=== PATIENT | female | born 1935 | race Caucasian/White ===

== ENCOUNTER 2017-10-15 11:37 | Emergency (ER) | payer MEDICARE, BC ==
[~2017-10-15] VITALS: Ht 152.4 cm; Wt 65.8 kg
[~2017-10-15 11:37] MED LIST: AMLODIPINE BESY10 MG PO; ASPIR 8181 MG PO; CEPHALEXIN500 MG PO; CITALOPRAM HBR20 MG PO; GNP B-COMPLEX1 EACH PO; LEVOCETIRIZINE D5 MG PO; PRAVACHOL20 MG PO; ROVIN-CF OF TA1 EACH
[2017-10-15 12:35] LABS: BASOPHILS % 0.3 % (0.0-1.0); EOSINOPHILS % 0.1 % (0.0-6.0); HEMATOCRIT 41.2 % (34.2-44.1); HEMOGLOBIN 13.8 g/dL (12.0-16.0); LYMPHOCYTES # (AUTO) 0.5 (1.0-3.2); LYMPHOCYTES % 3.6 % (18.0-39.1); MEAN CORPUSCULAR HEMOGLOBIN 30.2 pg (28-32); MEAN CORPUSCULAR HGB CONC 33.5 g/dL (31-35); MEAN CORPUSCULAR VOLUME 90.2 fL (81-99); MONOCYTES # (AUTO) 0.4 (0.2-0.8); MONOCYTES % 3.4 % (4.4-11.3); NEUTROPHILS # (AUTO) 12.1 (2.1-6.9); NEUTROPHILS % 92.3 % (38.7-80.0); PLATELET COUNT 214 x10e3/uL (140-360); RED BLOOD COUNT 4.57 x10e6/uL (3.6-5.1); RED CELL DISTRIBUTION WIDTH 12.7 % (11.7-14.4)
[2017-10-15] MEDS ORDERED: KETOROLAC TROMETHAMINE 30 MG/ML VIAL IV ONE (13:00)
--- NOTE | 2017-10-15 13:13 | Diagnostic Imaging Report ---
Exam: Head CT without contrast History: New onset headache Comparison studies: None Technique: Axial images were obtained from the skull base to the vertex. Coronal and sagittal images reconstructed from the axial data. Intravenous contrast: None Findings: Scalp: No abnormalities. Bones: No fractures, blastic or lytic lesions. Brain sulci: Appropriate for age. Ventricles: Normal in size and configuration. No hydrocephalus. Extra-axial spaces: No masses, no fluid collection. Parenchyma: A few scattered hypodensities in the supratentorial white matter are nonspecific but most compatible with chronic small vessel ischemic changes. Small chronic lacunar insult in the anterior limb of the right internal capsule. Sellar/suprasellar region: No abnormalities. Craniocervical junction: Patent foramen magnum. No Chiari one malformation. Included paranasal sinuses: Left sphenoid sinus is opacified and contains hyperdense inspissated secretions. Nonspecific inflammatory mucosal thickening in the posterior ethmoids and right sphenoid sinus. Incidental findings: Atherosclerotic calcifications in the carotid siphons. IMPRESSION: 1. No acute intracranial abnormalities. 2. Mild supratentorial chronic microvascular ischemic changes with chronic lacunar infarct in the anterior limb of the right internal capsule. 3. Inflammatory changes in the paranasal sinuses. Signed by: Dr. Hunter Sanchez M.D. on 10/15/2017 1:09 PM
[2017-10-15 13:34] LABS: ERYTHROCYTE SEDIMENTATION RATE 35 mm/hr (0-20)
[2017-10-15 13:48] LABS: ANION GAP 12.2 mmol/L (8-16); CALCIUM 9.8 mg/dL (8.4-10.2); CREATININE, SERUM 1.02 mg/dL (0.57-1.11); POTASSIUM 3.2 mmol/L (3.5-5.1)
--- NOTE | 2017-10-15 13:50 | Diagnostic Imaging Report ---
EXAMINATION: CHEST SINGLE (PORTABLE) INDICATION: \S\cough \S\Y COMPARISON: 11/19/2014 FINDINGS: AP view TUBES and LINES: None. LUNGS: Lungs are well inflated. Mild central vascular congestion and interstitial edema. No definite focal consolidation. PLEURA: No pleural effusion or pneumothorax. HEART AND MEDIASTINUM: Enlarged cardiac silhouette. Aorta is mildly tortuous. BONES AND SOFT TISSUES: No acute osseous lesion. Soft tissues are unremarkable. UPPER ABDOMEN: No free air under the diaphragm. IMPRESSION: Mild central vascular congestion and interstitial edema. No definite focal consolidation. Signed by: Dr. Marek Bower MD on 10/15/2017 1:46 PM
[2017-10-15] MEDS ORDERED: CEFTRIAXONE SOD 1 GM VIAL IV ONE (14:00)
[2017-10-15 14:21] VITALS: BP 110/58
== END 2017-10-15 14:35 | disposition home or self-care (01) ==
LOC: ER 11:37
DX: G44.52 New daily persistent headache (NDPH) (principal); J01.20 Acute ethmoidal sinusitis, unspecified; J01.30 Acute sphenoidal sinusitis, unspecified; I10 Essential (primary) hypertension
CPT/HCPCS: 36415; 70450; 71045; 80048; 85025; 85651; 99284; J0696; J1885

== ENCOUNTER → 2019-02-11 | Outpatient (CLI) | payer MEDICARE, BC ==
--- NOTE | 2019-02-11 10:02 | Diagnostic Imaging Report ---
EXAM: Renal Ultrasound INDICATION: ^CYST OF KIDNEY COMPARISON: Renal ultrasound 05/15/2012 TECHNIQUE: Transverse and longitudinal images of the kidneys and bladder were obtained. FINDINGS: Right Kidney: Status post right nephrectomy Left Kidney: Length: 10.4 cm Appearance: Normal echogenicity. Collecting system: No hydronephrosis Stones: None Cyst/Mass: Inferior pole 1.0 x 1.3 x 0.6 cm cystic structure with internal echoes and questionable associated vascularity. Bladder: No mass, calculi, or wall thickening. Prevoid volume estimate of 139.6 cc. Left ureteral jet seen. Incidental note made of left ovarian cyst measuring 2.9 x 3.3 x 3.4 cm centrally unchanged from prior sonographic evaluation allowing for differences in technique. IMPRESSION: Status post right nephrectomy. Left kidney inferior pole 1.0 x 1.3 x 0.6 cm cystic structure with internal echoes and questionable associated vascularity. Recommend attention to this area on 6 month follow-up ultrasound. Signed by: Leoncio Apodaca MD on 02/11/2019 9:59 AM
== END ==
LOC: US 07:48
PROVIDERS: ATTEND Urology
DX: N28.1 Cyst of kidney, acquired (principal)
CPT/HCPCS: 76770

== ENCOUNTER → 2020-04-30 | Outpatient (CLI) | payer MEDICARE, BC ==
--- NOTE | 2020-04-30 16:59 | Diagnostic Imaging Report ---
EXAM: Renal Ultrasound INDICATION: ^URINARY TRACT INFECTION COMPARISON: Ultrasound dated 02/11/2019 TECHNIQUE: Transverse and longitudinal images of the kidneys and bladder were obtained. FINDINGS: Right Kidney: Status post right nephrectomy. Left Kidney: Length: 9.8 cm Appearance: Normal echogenicity. Collecting system: No hydronephrosis Stones: None Cyst/Mass: Inferior pole 1.2 cm anechoic lesion is noted with possible adjacent calcification. Bladder: Left ureteral jet is noted. There is either a separate adjacent cystic lesion within the left adnexum versus a bladder diverticulum within the pelvis measuring up to 3.7 cm. Patient also has a palpable abnormality in the left groin area concerning for possible hernia. Ultrasound imaging damages a questionable left inguinal hernia, which worsens with Valsalva. IMPRESSION: 1. Questionable bladder diverticulum versus left ovarian/adnexal cysts. 2. Probable left inguinal hernia. The above findings could be further evaluated with a contrast enhanced CT. Signed by: Pierre Schulz MD on 04/30/2020 4:56 PM
== END ==
LOC: US 15:55
PROVIDERS: ATTEND Urology
DX: N39.0 Urinary tract infection, site not specified (principal)
CPT/HCPCS: 76770

== ENCOUNTER 2022-11-03 10:41 | Emergency (ER) | payer MEDICARE, BC ==
[~2022-11-03] VITALS: Ht 152.4 cm; Wt 65.8 kg
[2022-11-03 12:47] LABS: BASOPHILS # (AUTO) 0.1 (0.0-0.1); BASOPHILS % 0.8 % (0.0-1.0); EOSINOPHILS # (AUTO) 0.1 (0.0-0.4); HEMATOCRIT 46.6 % (34.2-44.1); HEMOGLOBIN 15.3 g/dL (12.0-16.0); LYMPHOCYTES # (AUTO) 1.6 (1.0-3.2); MEAN CORPUSCULAR HEMOGLOBIN 29.6 pg (28-32); MEAN CORPUSCULAR HGB CONC 32.8 g/dL (31-35); MEAN CORPUSCULAR VOLUME 90.1 fL (81-99); MONOCYTES # (AUTO) 0.4 (0.2-0.8); MONOCYTES % 7.1 % (4.4-11.3); NEUTROPHILS # (AUTO) 3.9 (2.1-6.9); NEUTROPHILS % 63.8 % (38.7-80.0); PLATELET COUNT 241 x10e3/uL (140-360); RED BLOOD COUNT 5.17 x10e6/uL (3.6-5.1); RED CELL DISTRIBUTION WIDTH 13.1 % (11.7-14.4)
[2022-11-03 12:59] LABS: INR 0.86; PROTHROMBIN TIME 12.2 seconds (11.9-14.5)
[2022-11-03 13:00] LABS: PARTIAL THROMBOPLASTIN TIME 32.5 seconds (23.8-35.5)
[2022-11-03 13:08] LABS: ALANINE AMINOTRANSFERASE 11 IU/L (0-55); ALBUMIN 4.5 g/dL (3.5-5.0); ALBUMIN/GLOBULIN RATIO 1.2 (0.8-2.0); ALKALINE PHOSPHATASE 74 IU/L (40-150); ANION GAP 14.8 mmol/L (8-16); BLOOD UREA NITROGEN 21 mg/dL (7-26); BUN/CREATININE RATIO 24 (6-25); CARBON DIOXIDE 25 mmol/L (22-29); CHLORIDE 104 mmol/L (98-107); CREATINE KINASE 31 IU/L (29-168); CREATININE, SERUM 0.87 mg/dL (0.57-1.11); GLUCOSE 105 mg/dL (74-118); POTASSIUM 3.8 mmol/L (3.5-5.1); SODIUM 140 mmol/L (136-145)
[2022-11-03] MEDS ORDERED: SODIUM CHLORIDE 0.9% 100 ML ONE (13:21)
[2022-11-03] MEDS ORDERED: IOPAMIDOL 370 MG/ML 100 ML INFUS..BTL INJ ONE (13:22)
== END 2022-11-03 14:32 | disposition home or self-care (01) ==
LOC: ER 10:53
DX: R27.0 Ataxia, unspecified (principal); R51.9 Headache, unspecified; R94.31 Abnormal electrocardiogram [ECG] [EKG]
CPT/HCPCS: 36415; 70496; 70498; 80053; 82550; 82553; 83880; 84484; 85025; 85610; 85730; 93005; 99284; J7050; Q9967

== ENCOUNTER 2022-11-21 05:23 | Inpatient (IN) | payer MEDICARE, BC ==
[~2022-11-21] VITALS: Ht 152.4 cm; Wt 60.3 kg
[2022-11-21] MEDS ORDERED: ONDANSETRON HCL INJ 2MG/ML 2ML 2 MG/ML VIAL IV STA (05:26)
[2022-11-21] MEDS ORDERED: HYDROMORPHONE 1MG/1ML INJ IV STA (05:26)
[2022-11-21 05:49] LABS: BASOPHILS % 0.8 % (0.0-1.0); EOSINOPHILS # (AUTO) 0.1 (0.0-0.4); EOSINOPHILS % 2.9 % (0.0-6.0); HEMATOCRIT 42.2 % (34.2-44.1); HEMOGLOBIN 13.9 g/dL (12.0-16.0); LYMPHOCYTES % 40.9 % (18.0-39.1); MEAN CORPUSCULAR HEMOGLOBIN 29.8 pg (28-32); MEAN CORPUSCULAR HGB CONC 32.9 g/dL (31-35); MEAN CORPUSCULAR VOLUME 90.6 fL (81-99); MONOCYTES # (AUTO) 0.6 (0.2-0.8); MONOCYTES % 11.6 % (4.4-11.3); NEUTROPHILS # (AUTO) 2.1 (2.1-6.9); NEUTROPHILS % 43.6 % (38.7-80.0); PLATELET COUNT 191 x10e3/uL (140-360); RED BLOOD COUNT 4.66 x10e6/uL (3.6-5.1); RED CELL DISTRIBUTION WIDTH 13.2 % (11.7-14.4)
[2022-11-21 06:05] LABS: INR 0.9; PROTHROMBIN TIME 12.7 seconds (11.9-14.5)
[2022-11-21 06:06] LABS: PARTIAL THROMBOPLASTIN TIME 26.9 seconds (23.8-35.5)
[2022-11-21 06:31] LABS: ALBUMIN 3.7 g/dL (3.5-5.0); ALBUMIN/GLOBULIN RATIO 1.2 (0.8-2.0); ANION GAP 12.5 mmol/L (8-16); CALCIUM 9.5 mg/dL (8.4-10.2); CREATININE, SERUM 0.87 mg/dL (0.57-1.11); POTASSIUM 3.5 mmol/L (3.5-5.1)
[2022-11-21] MEDS ORDERED: ONDANSETRON HCL INJ 2MG/ML 2ML 2 MG/ML VIAL IV PRN (07:45)
[2022-11-21] MEDS ORDERED: SODIUM CHLORIDE 0.9% 1000ML 1,000 ML IV SCH (07:45)
[2022-11-21] MEDS: Morphine 4mg INJECTION 4 MG/ML INJ IV PRN ×3 (08:27→21:20)
[2022-11-21] MEDS ORDERED: LORATADINE 10 MG TAB PO PRN (11:45)
[2022-11-21] MEDS ORDERED: GUAIFENESIN/DEXTROMETHORPHAN LIQD 5 ML UDC PO PRN (11:45)
[2022-11-21] MEDS ORDERED: ALBUTEROL SULF 0.083% NEB SOLN 3 ML NEB NEB PRN (11:45)
[2022-11-21] MEDS ORDERED: MAGNESIUM/ALUMINUM/SIMETHICONE 30 ML UDC PO PRN (11:45)
[2022-11-21] MEDS ORDERED: ACETAMINOPHEN 325 MG TAB PO PRN (11:45)
[2022-11-21] MEDS ORDERED: MELATONIN 3 MG TAB PO PRN (11:45)
[2022-11-21] MEDS ORDERED: DOCUSATE SODIUM 100 MG CAP PO PRN ×2 (11:45→15:45)
[2022-11-21] MEDS ORDERED: HYDRALAZINE HCL 20 MG/ML VIAL IV PRN (11:45)
[2022-11-21] MEDS ORDERED: ONDANSETRON HCL INJ 2MG/ML 2ML 2 MG/ML VIAL ONE (12:29)
[2022-11-21] MEDS ORDERED: EPHEDRINE SULFATE INJ 50 MG/ML VIAL ONE (12:29)
[2022-11-21] MEDS ORDERED: POVIDONE IODINE 0.05% 0.05 % ML PO ONE (12:29)
[2022-11-21] MEDS ORDERED: SEVOFLURANE INHAL SOLN 250 ML PEN BTL ONE (12:29)
[2022-11-21] MEDS ORDERED: LIDOCAINE HCL 2% LOCAL INJ 5 ML SDV VIAL INJ ONE (12:29)
[2022-11-21] MEDS ORDERED: PROPOFOL IV EMULSION 10 MG/ML 20 ML VIAL ONE (12:29)
[2022-11-21] MEDS ORDERED: FENTANYL CITRATE/PF 100MCG/2 ML INJ ONE (12:34)
[2022-11-21] MEDS ORDERED: ACETAMINOPHEN 1000 MG/100 ML 100 ML IV ONE (14:08)
[2022-11-21] MEDS ORDERED: SUGAMMADEX SODIUM 200 MG/2 ML VIAL IV ONE (14:08)
[2022-11-21] MEDS ORDERED: HYDROCODONE/APAP 7.5MG-325MG 1 EA TAB PO PRN (15:45)
[2022-11-21] MEDS ORDERED: ACETAMINOPHEN 650 MG SUPP PR PRN (15:45)
[2022-11-21] MEDS ORDERED: DIPHENHYDRAMINE HCL INJ 50 MG/ML VIAL IV PRN (15:45)
[2022-11-21] MEDS: ASPIRIN 325 MG TAB PO SCH ×2 (17:00→17:40)
[2022-11-21] MEDS: CELECOXIB 100 MG CAP PO SCH ×2 (17:00→17:40)
[2022-11-21] MEDS ORDERED: ASPIRIN 325 MG TAB ONE (17:35)
[2022-11-21] MEDS ORDERED: HYDROCODONE/APAP 7.5MG-325MG 1 EA TAB ONE (17:53)
[2022-11-21] MEDS ORDERED: HYDROCODONE/APAP 7.5MG-325MG 1 EA TAB PO ONE (17:55)
[2022-11-21] MEDS ORDERED: ACETAMINOPHEN 1000 MG/100 ML IV PRN (18:00)
[2022-11-21 20:00] VITALS: BP 88/55; PULSE 89; RESP 16; TEMP 97; O2SAT 96
[2022-11-21] MEDS ORDERED: SODIUM CHLORIDE 0.9% 250ML 250 ML ONE (20:42)
[2022-11-21] MEDS: SODIUM CHLORIDE 0.9% 1000ML 1,000 ML IV SCH (21:20)
[2022-11-21] MEDS: ONDANSETRON HCL INJ 2MG/ML 2ML 2 MG/ML VIAL IV PRN (21:20)
[2022-11-21 21:40] VITALS: BP 88/55; PULSE 89; RESP 16; TEMP 97; O2SAT 96
[2022-11-21 23:52] VITALS: BP 88/55; PULSE 89; RESP 16; TEMP 97; O2SAT 96
[2022-11-22] VITALS (9 sets, daily range): BP systolic 102–120; BP diastolic 52–66; PULSE 66–102; RESP 15–21; TEMP 97.2–99.9; O2SAT 90–97
[2022-11-22] MEDS: SODIUM CHLORIDE 0.9% 1000ML 1,000 ML IV SCH ×3 (01:45→22:21)
[2022-11-22] MEDS: ONDANSETRON HCL INJ 2MG/ML 2ML 2 MG/ML VIAL IV PRN (04:52)
[2022-11-22] MEDS: Morphine 4mg INJECTION 4 MG/ML INJ IV PRN (04:52)
[2022-11-22 05:29] LABS: BASOPHILS % 0.3 % (0.0-1.0); EOSINOPHILS % 0.1 % (0.0-6.0); HEMATOCRIT 32.4 % (34.2-44.1); HEMOGLOBIN 9.9 g/dL (12.0-16.0); LYMPHOCYTES % 8.9 % (18.0-39.1); MEAN CORPUSCULAR HEMOGLOBIN 29.6 pg (28-32); MEAN CORPUSCULAR HGB CONC 30.6 g/dL (31-35); MEAN CORPUSCULAR VOLUME 96.7 fL (81-99); MONOCYTES % 8.5 % (4.4-11.3); NEUTROPHILS # (AUTO) 9.2 (2.1-6.9); NEUTROPHILS % 81.8 % (38.7-80.0); PLATELET COUNT 153 x10e3/uL (140-360); RED BLOOD COUNT 3.35 x10e6/uL (3.6-5.1); RED CELL DISTRIBUTION WIDTH 13.7 % (11.7-14.4)
[2022-11-22 05:54] LABS: ALBUMIN 2.9 g/dL (3.5-5.0); ALBUMIN/GLOBULIN RATIO 1.3 (0.8-2.0); CALCIUM 8.2 mg/dL (8.4-10.2); CREATININE, SERUM 1.24 mg/dL (0.57-1.11)
[2022-11-22] MEDS ORDERED: ASPIRIN 81 MG CHEW TAB PO SCH (09:00)
[2022-11-22] MEDS: CELECOXIB 100 MG CAP PO SCH ×2 (09:35→17:16)
[2022-11-22] MEDS: CITALOPRAM HYDROBROMIDE 20 MG TAB PO SCH (09:35)
[2022-11-22] MEDS: MULTIVITAMINS/MINERALS TAB PO SCH (09:35)
[2022-11-22] MEDS: ASPIRIN 325 MG TAB PO SCH ×2 (09:35→17:17)
[2022-11-22] MEDS: PRAVASTATIN 20 MG TAB PO SCH (09:36)
[2022-11-22] MEDS: AMLODIPINE BESYLATE 10 MG TAB PO SCH (09:36)
[2022-11-22] MEDS: HYDROCODONE/APAP 5MG-325MG TAB PO PRN ×2 (09:53→14:25)
[2022-11-23] VITALS (7 sets, daily range): BP systolic 105–166; BP diastolic 52–84; PULSE 80–94; RESP 17–20; TEMP 98.3–98.7; O2SAT 92–97
[2022-11-23 05:35] LABS: BASOPHILS # (AUTO) 0.1 (0.0-0.1); BASOPHILS % 0.5 % (0.0-1.0); EOSINOPHILS # (AUTO) 0.1 (0.0-0.4); EOSINOPHILS % 1.2 % (0.0-6.0); HEMATOCRIT 26.6 % (34.2-44.1); HEMOGLOBIN 8.2 g/dL (12.0-16.0); LYMPHOCYTES # (AUTO) 1.1 (1.0-3.2); LYMPHOCYTES % 11.5 % (18.0-39.1); MEAN CORPUSCULAR HEMOGLOBIN 29.7 pg (28-32); MEAN CORPUSCULAR HGB CONC 30.8 g/dL (31-35); MEAN CORPUSCULAR VOLUME 96.4 fL (81-99); MONOCYTES # (AUTO) 0.9 (0.2-0.8); MONOCYTES % 9.3 % (4.4-11.3); NEUTROPHILS # (AUTO) 7.1 (2.1-6.9); NEUTROPHILS % 77.1 % (38.7-80.0); PLATELET COUNT 120 x10e3/uL (140-360); RED BLOOD COUNT 2.76 x10e6/uL (3.6-5.1); RED CELL DISTRIBUTION WIDTH 13.6 % (11.7-14.4)
[2022-11-23 05:55] LABS: ANION GAP 9.6 mmol/L (8-16); CREATININE, SERUM 1.34 mg/dL (0.57-1.11); POTASSIUM 3.6 mmol/L (3.5-5.1)
[2022-11-23] MEDS: SODIUM CHLORIDE 0.9% 1000ML 1,000 ML IV SCH ×2 (06:07→17:45)
[2022-11-23] MEDS: CELECOXIB 100 MG CAP PO SCH ×2 (10:00→17:28)
[2022-11-23] MEDS: MULTIVITAMINS/MINERALS TAB PO SCH (10:00)
[2022-11-23] MEDS: PRAVASTATIN 20 MG TAB PO SCH (10:00)
[2022-11-23] MEDS: CITALOPRAM HYDROBROMIDE 20 MG TAB PO SCH (10:00)
[2022-11-23] MEDS: ASPIRIN 325 MG TAB PO SCH ×2 (10:00→17:28)
[2022-11-23] MEDS: AMLODIPINE BESYLATE 10 MG TAB PO SCH (10:01)
[2022-11-23] MEDS: HYDROCODONE/APAP 5MG-325MG TAB PO PRN (10:02)
[2022-11-23] MEDS ORDERED: ONDANSETRON HCL 4 MG ORAL DISINTEGRATING TAB PO PRN (14:00)
[2022-11-23 15:25] LABS: HEMATOCRIT 26.7 % (34.2-44.1); HEMOGLOBIN 8.1 g/dL (12.0-16.0)
[2022-11-23] MEDS ORDERED: DOCUSATE SODIUM 100 MG CAP PO SCH (17:00)
[2022-11-24] MEDS ORDERED: FERROUS SULFATE 325 MG TAB PO SCH (09:00)
== END 2022-11-23 18:55 | DRG 481 ==
LOC: ER 07:07 → ERHOLD 07:32 → PACU V 16:20 → MED/SURG 19:31
PROVIDERS: ADMIT Internal Medicine Critical Care Medicine; ATTEND Internal Medicine Critical Care Medicine
PROC: 0QS606Z Reposition Right Upper Femur with Intramedullary Internal Fixation Device, Open Approach (ICD-10-PCS; principal; 2022-11-21 14:54)
DX: S72.141A Displaced intertrochanteric fracture of right femur, initial encounter for closed fracture (principal); S52.571A Other intraarticular fracture of lower end of right radius, initial encounter for closed fracture; W01.0XXA Fall on same level from slipping, tripping and stumbling without subsequent striking against object, initial encounter; I10 Essential (primary) hypertension; E78.5 Hyperlipidemia, unspecified; R00.1 Bradycardia, unspecified; I25.10 Atherosclerotic heart disease of native coronary artery without angina pectoris; J30.9 Allergic rhinitis, unspecified; Z88.0 Allergy status to penicillin; Z20.822 Contact with and (suspected) exposure to COVID-19; Z79.82 Long term (current) use of aspirin
CPT/HCPCS: 36415; 51700; 71045; 76000; 80048; 80053; 85014; 85018; 85025; 85610; 85730; 86850; 86900; 93005; 94799; 99284; C1713; J0690; J1170; J2001; J2270; J2405; J7030; J7050